=== PATIENT | male | born 1985 | race African-American/Black ===

== ENCOUNTER 2021-06-16 13:08 | Emergency (ER) | payer SELFPAY ==
[~2021-06-16] VITALS: Ht 182.9 cm; Wt 67.0 kg
[2021-06-16 13:11] VITALS: BP 126/96
== END 2021-06-16 15:15 | disposition left against medical advice (07) ==
LOC: ER 13:08
DX: Z53.21 Procedure and treatment not carried out due to patient leaving prior to being seen by health care provider (principal)
CPT/HCPCS: 93005